=== PATIENT | male | born 1975 | race Caucasian/White ===

== ENCOUNTER → 2017-01-13 | Outpatient (CLI) | payer OTHER ==
[2017-01-13 08:51] LABS: ALT/SGPT 42 U/L (12-78); AST/SGOT 23 U/L (15-37); BLOOD UREA NITROGEN 11 mg/dl (7-18); BUN/CREATININE RATIO 9.2 (10-20); CALCIUM 8.8 mg/dl (8.5-10.1); CARBON DIOXIDE 27 mmol/L (21-32); CHLORIDE 105 mmol/L (98-107); CHOLESTEROL 161 mg/dl (0-200); GLUCOSE 88 mg/dl (70-99); POTASSIUM 3.6 mmol/L (3.5-5.1); SODIUM 143 mmol/L (136-145); TRIGLYCERIDES 141 mg/dl (0-150); VERY LOW DENSITY LIPOPROT CALC 28 mg/dl
[2017-01-13 08:56] LABS: ALKALINE PHOSPHATASE 108 U/L (45-117); CHOLESTEROL/HDL RATIO 4.5; HDL CHOLESTEROL 36 mg/dl; LDL CHOLESTEROL CALCULATED 97 mg/dl
== END | disposition home or self-care (01) ==
LOC: C.LAB 07:19
PROVIDERS: ATTEND Family Medicine
DX: I10 Essential (primary) hypertension (principal); E78.1 Pure hyperglyceridemia

== ENCOUNTER 2022-08-11 03:52 | Inpatient (IN) ==
[2022-08-11] MEDS ORDERED: KETOROLAC TROMETHAMINE 15 MG/ML VIAL IV ONE (04:19)
[2022-08-11] MEDS ORDERED: SODIUM CHLORIDE 0.9% 1000ML 1,000 ML IV SCH (04:20)
--- NOTE | 2022-08-11 04:30 | Emergency Department Note ---
Impression & Plan Perforated small intestine, Abdominal pain ED Provider Note CHIEF COMPLAINT: Abdominal pain HISTORY OF PRESENT ILLNESS: Elio Lawler is a 47 year old male with history of HTN, GERD, ARTEM, among others listed below who presents to the Emergency Department for evaluation of left lower abdominal pain radiating into his periumbilical region and left upper abdomen which has become progressively worse since yesterday morning. He describes a constant, squeezing pain which becomes worse with movement and with palpation of the area. Currently, he rates his discomfort as a 5/10 which has not been significantly improved after taking Tylenol and ibuprofen. The patient's last bowel movement was yesterday morning which is unlike him as he normally has at least one a day. He does state that it was normal at that time, no diarrhea, hematochezia or melena. About 1 hour ago, he states that he was sitting on the toilet when he suddenly became very sweaty and felt nauseous in addition to the pain. No vomiting or urinary symptoms. The patient does state that he recently tested +COVID-19 on 08/09 (2 days prior). He has had fevers/chills, post-nasal drip and a cough. He otherwise denies chest pain or respiratory difficulties. The patient denies having similar symptoms in the past. No history of abdominal surgeries. REVIEW OF SYSTEMS: 10 systems were reviewed and were negative unless otherwise stated in HPI as above PHYSICAL EXAM: VITALS: Vitals are noted on the nurse's note and reviewed by myself. Vital signs stable. General: Resting in bed, appears uncomfortable but no acute distress HEENT: Normocephalic, PERRL, EOMI, mucous membranes moist, oropharynx clear without erythema, edema or exudates Neck: Supple, no lymphadenopathy, non-tender, ROM intact without pain Resp: Good inspiratory effort on room air, lung sounds clear bilaterally CV: Regular rate and rhythm, normal S1-S2, peripheral pulses palpated Back: No CVA/flank tenderness to palpation Abd: Obese, soft, tender to palpation over the left upper and lower abdominal quadrants, epigastrium and periumbilical region. No rebound, guarding or rigidity MSK: Moving all extremities without apparent pain or difficulty Integumentary: Warm, dry, no appreciable rash Neuro: Awake, alert and oriented x 3, interacting and answering questions appropriately Differential diagnosis includes etiologies such as appendicitis, diverticulitis, obstruction, inflammatory bowel disease, renal colic, PUD, biliary pathology, pancreatitis, mesenteric ischemia, aortic pathology, infections, genitourinary, UTI, perforated viscus, as well as others were entertained. EMERGENCY DEPARTMENT COURSE: Physical exam and history were performed. Nursing triage notes, EMR, and medication list were personally reviewed. Patient appears to have left lower abdominal pain radiating into his periumbilical region and left upper abdomen which has become progressively worse since yesterday morning. Additional history as described above. See physical exam as noted above. EKG was obtained and showed normal sinus rhythm at 99 bpm. No ectopy or concern for acute ischemic change. When compared to study from 08/05/2016, no signi ficant change was found. The patient was offered medications. IV access was established and he was given NSS 1 L, Toradol 15 mg, morphine 5 mg x 2 and Zofran 4 mg throughout his emergency department course. Labs were obtained and reviewed by myself as below. Of note, leukocytosis with a WBC of 13.11. No concern for anemia with hemoglobin 14.3. Electrolytes WNL. Renal indices stable. LFTs nondiagnostic. Lipase WNL. CAT scan of the abdomen/pelvis was obtained and reviewed by radiologist and myself as below. Of note, there was moderate extraluminal gas with associated mesenteric infiltration within the jejunal mesentery which represent a contained perforation. Probable associated diverticulum, favors perforated jejunal diverticulitis. Upon reevaluation, the patient was feeling improved after receiving the medication but still noted pain. I discussed the results of the above findings with him at bedside as well as my plans to speak with general surgery. I did call and speak with Rigoberto GIMENEZ of general surgery and discussed the patient's case with him. He advised starting him on Zosyn, which was ordered, and they plan to evaluate the patient. Recommended speaking with medicine for admission. I then called and spoke with Dr. Duckworth of the [facility] physician group. He agreed to evaluate the patient for further management. Please see his dictation for additional plan and disposition. I did update the patient on my discussion with both general surgery and me rivas. He verbalized understanding and agreement with the treatment plan as above. The chart was completed utilizing [employer] Voice Recognition Software. Grammatical errors, random word insertions, pronoun errors, and incomplete sentences are an occasional consequence of this system due to software limitations, ambient noise, and hardware issues. Any formal questions or concerns about the content, text, or information contained within the body of this dictation should be directly addressed to the provider for clarification. Past Med/Surg History Medical History (Updated 08/11/22 @ 09:44 by Delmy Adair PA-C) GERD (gastroesophageal reflux disease) Hypertension ARTEM (obstructive sleep apnea) Surgical History H/O vasectomy No pertinent past surgical history Family History Mother Hypertension Brother Hypertension Aunt Breast cancer Grandfather (Paternal) Myocardial infarction Denies family history of Ovarian cancer Prostate cancer Diabetes Colorectal cancer Social History Smoking Status: Never smoker Second Hand Exposure: No; Hx Alcohol Use: Yes Alcohol Intake Frequency: Monthly or Less Hx Substance Use: No Preferred Language: Sudanese marital status: Current Living Situation: Family current occupational status: employed 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 How many Children do You have: 3 Feels Safe at Home: Yes caffeine: Yes Dental Care, Regularly: Yes Physical Activity Frequency: 1-2 Times per Week Seatbelt Use: sometimes Sunscreen Use: Yes (sometimes ) Allergies Allergies Allergy/AdvReac Type Severity Reaction Status Date / Time No Known Drug Allergies Allergy Verified 05/09/22 09:25 Bee sting AdvReac Unknown Uncoded 05/09/22 09:25 Home Meds Home Medications Medication Instructions Recorded Confirmed famotidine 10 mg tablet 10 mg PO HS 06/17/20 08/11/22 amlodipine 5 mg tablet 5 mg PO HS 08/11/22 08/11/22 hydrochlorothiazide 25 mg tablet 25 mg PO HS 08/11/22 08/11/22 losartan 100 mg tablet 100 mg PO HS 08/11/22 08/11/22 Previous Rx's Medication Instructions Recorded Auto Titrating CPAP See Rx Instructions .Route 12/22/21 .COMPLEX #1 ea Results & Data (ED) Vital Signs Vital Signs - 24 hr 08/11/22 03:52 08/11/22 06:08 08/11/22 08:49 Temperature 37.1 C Temperature Source Temporal Artery Scan Pulse Rate 105 H Pulse Rate [Finger] 91 H 97 H Respiratory Rate 16 18 18 Respiratory Effort / Characteristics Non-Labored Spontaneous Respiratory Depth Normal Blood Pressure 123/82 Blood Pressure [Right Arm] 154/92 H 117/72 Blood Pressure Mean 95 Blood Pressure Mean [Right Arm] 112 87 Pulse Oximetry 96 96 95 Oxygen Delivery Method Room Air Nasal Cannula Oxygen Flow Rate 2 Sepsis New/Unexplained Change in Mental Status No Sepsis Action Taken by Nursing No Action Required Laboratory Data Result diagrams: 08/11/22 04:09 08/11/22 04:09 Lab Results 08/11/22 08/11/22 08/11/22 Range/Units 04:09 04:09 08:05 WBC 13.11 H (4.8-10.8) K/ul RBC 4.64 (4.63-6.08) M/uL Hgb 14.3 (14.0-18.0) g/dl Hct 43.3 (40.1-51.0) % MCV 93.3 (80.0-100.0) fL MCH 30.8 (25.0-34.0) pg MCHC 33.0 (32.0-36.0) g/dL RDW Std Deviation 42.6 (36.4-46.3) fL RDW Coeff of Caitlin 12.5 (11.5-14.5) % Plt Count 155 (130-400) K/uL MPV 10.3 (9.4-12.4) fL Immature Gran % (Auto) 0.5 % Neut % (Auto) 83.6 % Lymph % (Auto) 7.9 % [place] % (Auto) 7.7 % Eos % (Auto) 0.1 % Baso % (Auto) 0.2 % Neut # (Auto) 10.96 H (1.4-6.5) K/uL Lymph # (Auto) 1.04 L (1.2-3.4) K/uL [place] # (Auto) 1.01 H (0.24-0.82) K/uL Eos # (Auto) 0.01 (0-0.50) K/uL Baso # (Auto) 0.02 (0-0.2) K/uL Immature Gran # (Auto) 0.07 H (0.00-0.02) K/uL Sodium 136 (136-145) mmol/L Potassium 4.0 (3.5-5.1) mmol/L Chloride 105 (98-107) mmol/L Carbon Dioxide 24 (21-32) mmol/L Anion Gap 7 (3-11) BUN 12 (6-23) mg/dl Creatinine 1.12 (0.6-1.4) mg/dl Est Cr Clr Drug Dosing 112.4 ml/min Est GFR ( Amer) 91.5 ml/min Est GFR (Non-Af Amer) 78.9 ml/min BUN/Creatinine Ratio 10.7 (10-20) Glucose 127 H (70-99(Fasting)) mg/dl Lactate (0.4-2.0) mmol/L Calcium 8.8 (8.5-10.1) mg/dl Total Bilirubin 1.5 H (0.2-1.0) mg/dl AST 17 (13-39) U/L ALT 27 (7-52) U/L Alkaline Phosphatase 64 (34-104) U/L Total Protein 6.8 (6.0-8.3) gm/dl Albumin 4.0 (3.4-5.0) gm/dl Globulin 2.8 (2.5-4.0) gm/dl Albumin/Globulin Ratio 1.4 (0.9-2) Lipase 19 (11-82) U/L SARS-CoV-2, RNA, NAAT POSITIVE A* (NEGATIVE) 08/11/22 Range/Units 08:22 WBC (4.8-10.8) K/ul RBC (4.63-6.08) M/uL Hgb (14.0-18.0) g/dl Hct (40.1-51.0) % MCV (80.0-100.0) fL MCH (25.0-34.0) pg MCHC (32.0-36.0) g/dL RDW Std Deviation (36.4-46.3) fL RDW Coeff of Caitlin (11.5-14.5) % Plt Count (130-400) K/uL MPV (9.4-12.4) fL Immature Gran % (Auto) % Neut % (Auto) % Lymph % (Auto) % [place] % (Auto) % Eos % (Auto) % Baso % (Auto) % Neut # (Auto) (1.4-6.5) K/uL Lymph # (Auto) (1.2-3.4) K/uL [place] # (Auto) (0.24-0.82) K/uL Eos # (Auto) (0-0.50) K/uL Baso # (Auto) (0-0.2) K/uL Immature Gran # (Auto) (0.00-0.02) K/uL Sodium (136-145) mmol/L Potassium (3.5-5.1) mmol/L Chloride (98-107) mmol/L Carbon Dioxide (21-32) mmol/L Anion Gap (3-11) BUN (6-23) mg/dl Creatinine (0.6-1.4) mg/dl Est Cr Clr Drug Dosing ml/min Est GFR ( Amer) ml/min Est GFR (Non-Af Amer) ml/min BUN/Creatinine Ratio (10-20) Glucose (70-99(Fasting)) mg/dl Lactate 0.8 (0.4-2.0) mmol/L Calcium (8.5-10.1) mg/dl Total Bilirubin (0.2-1.0) mg/dl AST (13-39) U/L ALT (7-52) U/L Alkaline Phosphatase (34-104) U/L Total Protein (6.0-8.3) gm/dl Albumin (3.4-5.0) gm/dl Globulin (2.5-4.0) gm/dl Albumin/Globulin Ratio (0.9-2) Lipase (11-82) U/L SARS-CoV-2, RNA, NAAT (NEGATIVE) Administered Medications Discontinued Medications Sodium Chloride (Nss 1000ml) 1,000 mls @ 999 mls/hr IV .Q1H1M LONNIE Stop: 08/11/22 05:20 Last Infusion: 08/11/22 06:43 Dose: 0 mls/hr Documented By: Admin: 08/11/22 04:24 Dose: 999 mls/hr Documented By: NATHANAEL Piperacillin Sod/Tazobactam Sod (Zosyn) 4.5 gm in 120 mls @ 240 mls/hr IV NOW ONE Stop: 09/16/22 08:09 Last Infusion: 08/11/22 08:31 Dose: 0 mls/hr Documented By: Admin: 08/11/22 08:01 Dose: 240 mls/hr Documented By: JOEY Pantoprazole Sodium 40 mg/ (Syringe) 10 mls @ 5 mls/min IV NOW STA Stop: 08/11/22 08:03 Last Admin: 08/11/22 08:43 Dose: 5 mls/min Documented By: JOEY Ioversol (Optiray 300 500ml) 125 ml IV ONCE ONE Stop: 08/11/22 05:13 Last Admin: 08/11/22 05:13 Dose: 116 ml Documented By: REG Ketorolac Tromethamine (Ketorolac Tromethamine 15 Mg/Ml Vial) 15 mg IV NOW ONE Stop: 08/11/22 04:20 Last Admin: 08/11/22 04:24 Dose: 15 mg Documented By: NATHANAEL Morphine Sulfate (Morphine Sulfate 10 Mg/Ml Carp/Vial) 5 mg IV NOW STA Stop: 08/11/22 05:17 Last Admin: 08/11/22 05:23 Dose: 5 mg Documented By: NATHANAEL Morphine Sulfate (Morphine Sulfate 10 Mg/Ml Carp/Vial) 5 mg IV NOW STA Stop: 08/11/22 08:00 Last Admin: 08/11/22 08:10 Dose: 5 mg Documented By: JOEY Ondansetron HCl (Ondansetron Inj 2 Mg/Ml 2 Ml Vial) 4 mg IV NOW STA Stop: 08/11/22 05:17 Last Admin: 08/11/22 05:23 Dose: 4 mg Documented By: NATHANAEL Imaging Data Radiologist's Impression: Abdomen/Pelvis CT 08/11/22 04:19 CT OF THE ABDOMEN AND PELVIS WITH CONTRAST CLINICAL HISTORY: Left-sided abdominal pain. COMPARISON STUDY: None. TECHNIQUE: Following IV administration of 116 mL of Optiray, axial images of the abdomen and pelvis were obtained from the lung bases to the proximal femurs. Images were reviewed in the axial, sagittal, and coronal planes. IV contrast was administered without complication. Automated exposure control was utilized for the study. A dose lowering technique was utilized adhering to the principles of ALARA. CT DOSE: 2183.62 mGy.cm FINDINGS: Lung bases are unremarkable. There is hepatic steatosis. Spleen, adrenal glands, left kidney and pancreas are normal. A 7 mm hypodense lesion within the upper pole of the right kidney is too small to characterize. There is no biliary or pancreatic ductal dilatation. There is moderate extraluminal gas within the mesentery of the jejunum. There is associated moderate mesenteric stranding] mild small bowel wall thickening. There is a possible associated jejunal diverticulum measuring 1.7 cm on axial image 237 of 506. There are few prominent small bowel loops. However, there is no transition point to suggest a bowel obstruction. The appendix is normal. There is a 2.3 cm polypoid abnormality within the sigmoid colon on axial image 393 of 506. This may reflect a colonic lesion. Major vasculature is patent. There is no lymphadenopathy. Prominent portacaval and el hepatis nodes are likely benign. IMPRESSION: 1. Moderate extraluminal gas with associated mesenteric infiltration within the jejunal mesentery. The findings represent a contained perforation. Probable associated diverticulum. Although not definitive, the findings favor perforated jejunal diverticulitis. Close clinical follow-up is recommended. Findings discussed with Delmy Adair at time of dictation. 2. 2.3 cm polypoid abnormality within the sigmoid colon. A colonic lesion cannot be excluded. Nonemergent GI consultation is recommended for consideration for colonoscopy. 3. Hepatic steatosis. ACT 112: Positive. There are findings on this exam that require communication between the performing entity and the patient following Patient Test Result Inf ormation Act ([place] Act 112) guidelines. Electronically signed by: Baljeet Brody M.D. 08/11/2022 7:25 AM Chest X-Ray 08/11/22 07:59 XR chest 1V portable CLINICAL HISTORY: hypoxia, COVID-19 TECHNIQUE: Single frontal radiograph of the chest was obtained. Comparison: None available at the time of this dictation. FINDINGS: No lines and tubes are seen. Cardiomegaly is noted. Prominence and cephalization of the vasculature is seen. No evidence of pleural effusion or pneumothorax. IMPRESSION: Cardiomegaly with mild pulmonary vascular congestion. ACT 112: Negative or not required by law. Electronically signed by: Davonte Joaquin M.D. 08/11/2022 8:44 AM Discharge Plan Visit Data Chief Complaint: Abdominal Pain Stated Complaint: ABDOMINAL PAIN, COVID POSITIVE ED Provider: Nery Matias ED Midlevel Provider: Delmy Adair Discharge Problem: Perforated small intestine, Abdominal pain Patient Disposition: Admitted As Inpatient Forms Stand Alone Forms: [facility] Prescriptions Prescriptions: No Action Auto Titrating CPAP Misc See Rx Instructions .ROUTE .COMPLEX Qty: 1 0RF Rx Instructions: Auto 5 to 18 cm of water, mask fit to patient comfort, heated humidification, compliance download capabilities, DME of patient choice; famotidine 10 mg tablet 10 mg PO HS amlodipine 5 mg tablet 5 mg PO HS hydrochlorothiazide 25 mg tablet 25 mg PO HS losartan 100 mg tablet 100 mg PO HS Referrals Referrals: Nura Basilio MD [Primary Care Provider] -
[2022-08-11 04:37] LABS: Basophils # (auto) 0.02 K/uL (0-0.2); Basophils % (auto) 0.2 %; Eosinophils # (auto) 0.01 K/uL (0-0.50); Eosinophils % (auto) 0.1 %; Hematocrit (blood only) 43.3 % (40.1-51.0); Hemoglobin 14.3 g/dl (14.0-18.0); Immature Granulocytes # (auto) 0.07 K/uL (0.00-0.02); Immature Granulocytes % (auto) 0.5 %; Lymphocytes # (auto) 1.04 K/uL (1.2-3.4); Lymphocytes % (auto) 7.9 %; Mean Corpuscular Hemoglobin 30.8 pg (25.0-34.0); Mean Corpuscular Volume 93.3 fL (80.0-100.0); Mean Platelet Volume 10.3 fL (9.4-12.4); Monocytes # (auto) 1.01 K/uL (0.24-0.82); Monocytes % (auto) 7.7 %; Neutrophils # (auto) 10.96 K/uL (1.4-6.5); Neutrophils % (auto) 83.6 %; Platelet Count 155 K/uL (130-400); RDW Coefficient of Variation 12.5 % (11.5-14.5); RDW Standard Deviation 42.6 fL (36.4-46.3); Red Blood Count 4.64 M/uL (4.63-6.08); White Blood Count 13.11 K/ul (4.8-10.8)
[2022-08-11 04:54] LABS: Albumin Globulin Ratio 1.4 (0.9-2); BUN Creatinine Ratio 10.7 (10-20); Bilirubin,Total 1.5 mg/dl (0.2-1.0); Calcium 8.8 mg/dl (8.5-10.1); Creatinine Clr Calc Pharmacy 112.4 ml/min; Est GFR (African American) 91.5 ml/min; Est GFR (Non-African American) 78.9 ml/min; Globulin 2.8 gm/dl (2.5-4.0); Total Protein 6.8 gm/dl (6.0-8.3)
[2022-08-11] MEDS ORDERED: OPTIRAY 300 500mL IV ONE (05:12)
[2022-08-11] MEDS ORDERED: MoRPHine SULFATE 10 MG/ML CARP/VIAL IV STA ×2 (05:16→07:59)
[2022-08-11] MEDS ORDERED: ONDANSETRON INJ 2 MG/ML 2 ML VIAL IV STA (05:16)
--- NOTE | 2022-08-11 07:27 | CT Scan Report ---
CT OF THE ABDOMEN AND PELVIS WITH CONTRAST CLINICAL HISTORY: Left-sided abdominal pain. COMPARISON STUDY: None. TECHNIQUE: Following IV administration of 116 mL of Optiray, axial images of the abdomen and pelvis w ere obtained from the lung bases to the proximal femurs. Images were reviewed in the axial, sagittal, and coronal planes. IV contrast was administered without complication. Automated exposure control w as utilized for the study. A dose lowering technique was utilized adhering to the principles of KARLA Ramirez. CT DOSE: 2183.62 mGy.cm FINDINGS: Lung bases are unremarkable. There is hepatic steatosis. Spleen, adrenal glands, left kidne y and pancreas are normal. A 7 mm hypodense lesion within the upper pole of the right kidney is too s mall to characterize. There is no biliary or pancreatic ductal dilatation. There is moderate extralum inal gas within the mesentery of the jejunum. There is associated moderate mesenteric stranding] mild small bowel wall thickening. There is a possible associated jejunal diverticulum measuring 1.7 cm on axial image 237 of 506. There are few prominent small bowel loops. However, there is no transition p oint to suggest a bowel obstruction. The appendix is normal. There is a 2.3 cm polypoid abnormality w ithin the sigmoid colon on axial image 393 of 506. This may reflect a colonic lesion. Major vasculatu re is patent. There is no lymphadenopathy. Prominent portacaval and el hepatis nodes are likely be nign. IMPRESSION: 1. Moderate extraluminal gas with associated mesenteric infiltration within the jejunal mesentery. Th e findings represent a contained perforation. Probable associated diverticulum. Although not definiti ve, the findings favor perforated jejunal diverticulitis. Close clinical follow-up is recommended. Fi ndings discussed with Delmy Adair at time of dictation. 2. 2.3 cm polypoid abnormality within the sigmoid colon. A colonic lesion cannot be excluded. [facility] is recommended for consideration for colonoscopy. 3. Hepatic steatosis. ACT 112: Positive. There are findings on this exam that require communication between the performing entity and the patient following Patient Test Result Information Act ([place] Act 112) guidelines. Electronically signed by: Baljeet Brody M.D. 08/11/2022 7:25 AM
[2022-08-11] MEDS ORDERED: PIPERACILLIN/TAZOBACTAM 4.5 GM/120 ML BAG IV ONE (07:40)
[2022-08-11] MEDS ORDERED: PANTOprazole 40 MG in SYRINGE 0 ML IV STA (08:02)
--- NOTE | 2022-08-11 08:11 | History & Physical Report ---
Date of Service August 11, 2022 Assessment & Plan (1) Perforated small intestine: Plan: NPO IV Zosyn IV fluids Lactate 0.8 Consult surgery (2) Diverticulitis of small bowel: Plan: As above (3) COVID-19: Plan: Mild nasal congestion as only symptom No specific treatment required on admission Hypoxia due to his ARTEM and morphine use CXR ordered (4) GERD (gastroesophageal reflux disease): Plan: Switch famotidine for pantoprazole 40mg IV daily given small bowel perforation as above (5) ARTEM (obstructive sleep apnea): Plan: May use own CPAP (6) Hypertension: Plan: Holding all oral antihypertensives on admission. Plan VTE Prophylaxis - low risk, SCDs Diet - NPO Disposition - admit to PCU Admission and Anticipated Discharge Date Admission Date: August 11, 2022 History of Present Illness Chief Complaint: Abdominal pain Primary Care Provider: Elio Basilio MD Elio Lawler is a 47-year-old male who presents to the ER with abdominal pain. He reports this started yesterday morning initially in his lower abdomen and yesterday progressed to his umbilicus and then to the left side. Yesterday around 5pm he started with fever and chills. He was recently diagnosed with COVID-19 2 days ago with associated nasal congestion, dry cough. He denies any chest pain, diarrhea, loss of taste or smell. No BM since yesterday morning but he also hasn't been eating much. Last main meal was on Sunday due to lack of appetite. He has been taking ibuprofen and Tyelenol for pain with limited effectiveness. He has chronic GERD for which he takes famotidine 20mg PO HS. In the ER CT A/P showed jejunal diverticulitis with contained perforation. ER provider discussed with surgery and asked for patient to be admitted under medicine for ongoing care with surgery on consult. Allergies Allergy/AdvReac Type Severity Reaction Status Date / Time No Known Drug Allergies Allergy Verified 05/09/22 09:25 Bee sting AdvReac Unknown Uncoded 05/09/22 09:25 Home Medications Medication Instructions Recorded Confirmed Type famotidine 10 mg tablet 10 mg PO HS 06/17/20 08/11/22 History Auto Titrating CPAP See Rx Instructions .Route 12/22/21 08/11/22 Rx .COMPLEX #1 ea amlodipine 5 mg tablet 5 mg PO HS 08/11/22 08/11/22 History hydrochlorothiazide 25 mg tablet 25 mg PO HS 08/11/22 08/11/22 History losartan 100 mg tablet 100 mg PO HS 08/11/22 08/11/22 History Past Med/Surg History Medical History (Updated 08/11/22 @ 22:46 by Suhail Duckworth MD) GERD (gastroesophageal reflux disease) Hypertension ARTEM (obstructive sleep apnea) Surgical History H/O vasectomy No pertinent past surgical history Family History Mother Hypertension Brother Hypertension Aunt Breast cancer Grandfather (Paternal) Myocardial infarction Denies family history of Ovarian cancer Prostate cancer Diabetes Colorectal cancer Social History Smoking Status: Never smoker Second Hand Exposure: No; Hx Alcohol Use: Yes Alcohol type: beer Alcohol Intake Frequency: Monthly or Less Hx Substance Use: No Preferred Language: Austrian Communication Ability: Effective Date Pitter Required: No Beliefs That Will Affect Care: None marital status: Current Living Situation: Spouse current occupational status: employed 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 How many Children do You have: 3 Feels Safe at Home: Yes caffeine: Yes Dental Care, Regularly: Yes Physical Activity Frequency: 1-2 Times per Week Seatbelt Use: sometimes Sunscreen Use: Yes (sometimes ) Assistive Devices: CPAP Review of Systems Review of Systems: All systems reviewed & are unremarkable except as noted in HPI & below Physical Exam Constitutional: WD/WN, vitals as above Eyes: + anicteric sclerae; normal pupil size Neck: trachea midline, no thyromegaly Respiratory: normal respiratory effort, lungs clear to auscultation Gastrointestinal (Abdomen): Inspection/Auscultation: abdomen normal to inspection and normal bowel sounds; abdomen not distended Percussion/Palpation: + abdomen tender (epigastric, umbilical, left sided) and abdomen soft; no guarding Musculoskeletal: no cyanosis or clubbing, extremities motor strength 5/5 Skin: no rashes, warm and dry Neurologic: moves all extremities and awake; not confused Psychiatric: A+Ox3, euthymic affect Genitourinary: no CVA tenderness Results & Data Results & Data ([facility]) Vital Signs (Past 12 Hours) Vital Signs Temp Pulse Pulse Resp BP BP Pulse Ox 08/11/22 06:08 91 H 18 154/92 H 96 08/11/22 03:52 37.1 C 105 H 16 123/82 96 O2 Del Method O2 Flow Rate 08/11/22 06:08 Nasal Cannula 2 08/11/22 03:52 Room Air Laboratory Results Abnormal lab results 08/11/22 08/11/22 Range/Units 04:09 04:09 WBC 13.11 H (4.8-10.8) K/ul Neut # (Auto) 10.96 H (1.4-6.5) K/uL Lymph # (Auto) 1.04 L (1.2-3.4) K/uL Swift # (Auto) 1.01 H (0.24-0.82) K/uL Immature Gran # (Auto) 0.07 H (0.00-0.02) K/uL Glucose 127 H (70-99(Fasting)) mg/dl Total Bilirubin 1.5 H (0.2-1.0) mg/dl Diagnostic Findings CT OF THE ABDOMEN AND PELVIS WITH CONTRAST CLINICAL HISTORY: Left-sided abdominal pain. COMPARISON STUDY: None. TECHNIQUE: Following IV administration of 116 mL of Optiray, axial images of the abdomen and pelvis were obtained from the lung bases to the proximal femurs. Images were reviewed in the axial, sagittal, and coronal planes. IV contrast was administered without complication. Automated exposure control was utilized for the study. A dose lowering technique was utilized adhering to the principles of ALARA. CT DOSE: 2183.62 mGy.cm FINDINGS: Lung bases are unremarkable. There is hepatic steatosis. Spleen, adrenal glands, left kidney and pancreas are normal. A 7 mm hypodense lesion within the upper pole of the right kidney is too small to characterize. There is no biliary or pancreatic ductal dilatation. There is moderate extraluminal gas within the mesentery of the jejunum. There is associated moderate mesenteric stranding] mild small bowel wall thickening. There is a possible associated jejunal diverticulum measuring 1.7 cm on axial image 237 of 506. There are few prominent small bowel loops. However, there is no transition point to suggest a bowel obstruction. The appendix is normal. There is a 2.3 cm polypoid abnormality within the sigmoid colon on axial image 393 of 506. This may reflect a colonic lesion. Major vasculature is patent. There is no lymphadenopathy. Prominent portacaval and el hepatis nodes are likely benign. IMPRESSION: 1. Moderate extraluminal gas with associated mesenteric infiltration within the jejunal mesentery. The findings represent a contained perforation. Probable associated diverticulum. Although not definitive, the findings favor perforated jejunal diverticulitis. Close clinical follow-up is recommended. Findings discussed with Delmy Adair at time of dictation. 2. 2.3 cm polypoid abnormality within the sigmoid colon. A colonic lesion cannot be excluded. Nonemergent GI consultation is recommended for consideration for colonoscopy. 3. Hepatic steatosis. Medications Administered ER medications given: Toradol 15 mg IV NSS 1 L bolus Morphine 5 mg IV x2 Ondansetron 4 mg IV Zosyn 4.5 g IV Code Status & VTE Plan Code Status Full VTE Prophylaxis Plan VTE Prophylaxis will be ordered: Yes PG Care Time/CCT Total # of Minutes Spent Total Time Spent with Patient: Total time spent is greater than 50% in coordination of care (as documented) at patient's floor/unit and/or counseling patient: Coding Level of Care Code 57066 Initial Inpt Care Lvl 2 Diagnoses Perforated small intestine K63.1 Diverticulitis of small bowel K57.12 COVID-19 U07.1 GERD (gastroesophageal reflux disease) K21.9 ARTEM (obstructive sleep apnea) G47.33 Hypertension I10
--- NOTE | 2022-08-11 08:36 | Surgery Consultation ---
Date of Consultation August 11, 2022 Assessment & Plan (1) Diverticulitis of small bowel: Contained perforation into mesentery. No acute exam findings. WBC 13. Keep on Zosyn, NPO for 24-48 hours. Will follow. Supervising Physician Co-Signing Physician Notes As per Robert DUNNE Conservative management at this time with broad-spectrum antibiotics and p.o. and follow clinically hopefully can avoid any surgical intervention History of Present Illness History of Present Illness 47 y/o male tested + for COVID 2 days ago. Yesterday began having lower abdo zoila pain that by evening became more central and severe. Had some fevers and chills and came to ED overnight. No previous abdominal pain or problems. No N/V. Normal BM yesterday morning. Only COVID symptom is mild cough. Allergies Allergy/AdvReac Type Severity Reaction Status Date / Time No Known Drug Allergies Allergy Verified 05/09/22 09:25 Bee sting AdvReac Unknown Uncoded 05/09/22 09:25 Home Medications Medication Instructions Recorded Confirmed Type famotidine 10 mg tablet 10 mg PO HS 06/17/20 08/11/22 History Auto Titrating CPAP See Rx Instructions .Route 12/22/21 08/11/22 Rx .COMPLEX #1 ea amlodipine 5 mg tablet 5 mg PO HS 08/11/22 08/11/22 History hydrochlorothiazide 25 mg tablet 25 mg PO HS 08/11/22 08/11/22 History losartan 100 mg tablet 100 mg PO HS 08/11/22 08/11/22 History Patient History Medical History (Updated 08/11/22 @ 09:44 by Delmy Adair PA-C) GERD (gastroesophageal reflux disease) Hypertension ARTEM (obstructive sleep apnea) Surgical History H/O vasectomy No pertinent past surgical history Family History Mother Hypertension Brother Hypertension Aunt Breast cancer Grandfather (Paternal) Myocardial infarction Denies family history of Ovarian cancer Prostate cancer Diabetes Colorectal cancer Social History Smoking Status: Never smoker Second Hand Exposure: No; Hx Alcohol Use: Yes Alcohol Intake Frequency: Monthly or Less Hx Substance Use: No Preferred Language: Nigerian marital status: Current Living Situation: Family current occupational status: employed 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 How many Children do You have: 3 Feels Safe at Home: Yes caffeine: Yes Dental Care, Regularly: Yes Physical Activity Frequency: 1-2 Times per Week Seatbelt Use: sometimes Sunscreen Use: Yes (sometimes ) Review of Systems Constitutional: + fever and + chills Respiratory: + cough; no dyspnea Gastrointestinal: + abdominal pain and + belching; no nausea, no vomiting and no diarrhea/loose stools Physical Exam Constitutional: WD/WN, vitals as above Respiratory: normal respiratory effort, lungs clear to auscultation Cardiovascular: Rate/Rhythm: + tachycardic Gastrointestinal (Abdomen): Inspection/Auscultation: abdomen normal to inspection; abdomen not distended Percussion/Palpation: + abdomen tender (mild epigastric) and abdomen soft; no guarding Results & Data ([facility]) Vital Signs (Past 12 Hours) Vital Signs Temp Pulse Pulse Resp BP BP Pulse Ox 08/11/22 06:08 91 H 18 154/92 H 96 08/11/22 03:52 37.1 C 105 H 16 123/82 96 O2 Del Method O2 Flow Rate 08/11/22 06:08 Nasal Cannula 2 08/11/22 03:52 Room Air PG Care Time/CCT Total # of Minutes Spent Total Time Spent with Patient: Total time spent is greater than 50% in coordination of care (as documented) at patient's floor/unit and/or counseling patient: Coding Level of Care Code 58585 Office/OBS Consult Lvl 3 Diagnoses Diverticulitis of small bowel K57.12
--- NOTE | 2022-08-11 08:45 | XRay Report ---
XR chest 1V portable CLINICAL HISTORY: hypoxia, COVID-19 TECHNIQUE: Single frontal radiograph of the chest was obtained. Comparison: None available at the time of this dictation. FINDINGS: No lines and tubes are seen. Cardiomegaly is noted. Prominence and cephalization of the vasculature i s seen. No evidence of pleural effusion or pneumothorax. IMPRESSION: Cardiomegaly with mild pulmonary vascular congestion. ACT 112: Negative or not required by law. Electronically signed by: Davonte Joaquin M.D. 08/11/2022 8:44 AM
[2022-08-11] MEDS ORDERED: ONDANSETRON INJ 2 MG/ML 2 ML VIAL ONE (10:55)
[2022-08-11] MEDS ORDERED: PIPERACILLIN/TAZOBACTAM 3.375 GM in DEXTROSE 5% 100 ML IV SCH (11:09)
[2022-08-11] MEDS ORDERED: ONDANSETRON INJ 2 MG/ML 2 ML VIAL IV PRN (11:09)
[2022-08-11] MEDS ORDERED: ACETAMINOPHEN 1,000 MG/100 ML VIAL IV PRN (11:12)
[2022-08-11] MEDS ORDERED: HYDROmorphone INJ 0.5 MG/0.5 ML SYR IV PRN ×2 (11:12)
[2022-08-11] MEDS: D5W AND LACTATED RINGERS 1,000 ML IV SCH (11:59)
[2022-08-11] MEDS: PIPERACILLIN/TAZOBACTAM 4.5 GM in DEXTROSE 5% 100 ML IV SCH ×2 (14:58→21:27)
--- NOTE | 2022-08-11 15:55 | Electrocardiogram Report ---
Test Reason : Blood Pressure : / mmHG Vent. Rate : 099 BPM Atrial Rate : 099 BPM P-R Int : 132 ms QRS Dur : 090 ms QT Int : 336 ms P-R-T Axes : 037 051 041 degrees QTc Int : 431 ms Normal sinus rhythm Normal ECG When compared with ECG of 05-AUG-2016 11:11, No significant change was found Confirmed by Carlos Calloway ([id number]) on 08/11/2022 3:55:22 PM Referred By: REFERRED SELF Confirmed By:Carlos Calloway
[2022-08-11] MEDS ORDERED: MoRPHine SULFATE 2 MG/ML CARP IV PRN (20:45)
[2022-08-11] MEDS ORDERED: MoRPHine SULFATE 4 MG/ML 1 ML CARP\\VIAL ONE (20:59)
[2022-08-11] MEDS ORDERED: MoRPHine SULFATE 4 MG/ML 1 ML CARP\\VIAL IV PRN (20:59)
[2022-08-12] MEDS: D5W AND LACTATED RINGERS 1,000 ML IV SCH ×4 (00:13→21:04)
[2022-08-12] MEDS: ACETAMINOPHEN 1,000 MG/100 ML VIAL IV SCH ×3 (00:13→18:05)
[2022-08-12] MEDS: PIPERACILLIN/TAZOBACTAM 4.5 GM in DEXTROSE 5% 100 ML IV SCH ×3 (05:44→21:04)
[2022-08-12 06:41] LABS: Basophils # (auto) 0.01 K/uL (0-0.2); Basophils % (auto) 0.1 %; Hematocrit (blood only) 37.8 % (40.1-51.0); Hemoglobin 12.3 g/dl (14.0-18.0); Immature Granulocytes # (auto) 0.05 K/uL (0.00-0.02); Immature Granulocytes % (auto) 0.5 %; Lymphocytes # (auto) 1.14 K/uL (1.2-3.4); Lymphocytes % (auto) 11.4 %; Mean Corpuscular Hemoglobin 30.7 pg (25.0-34.0); Mean Corpuscular Hgb Conc 32.5 g/dL (32.0-36.0); Mean Corpuscular Volume 94.3 fL (80.0-100.0); Mean Platelet Volume 10.6 fL (9.4-12.4); Monocytes # (auto) 0.55 K/uL (0.24-0.82); Monocytes % (auto) 5.5 %; Neutrophils # (auto) 8.28 K/uL (1.4-6.5); Neutrophils % (auto) 82.5 %; Platelet Count 143 K/uL (130-400); RDW Coefficient of Variation 12.7 % (11.5-14.5); RDW Standard Deviation 44.5 fL (36.4-46.3); Red Blood Count 4.01 M/uL (4.63-6.08); White Blood Count 10.03 K/ul (4.8-10.8)
--- NOTE | 2022-08-12 06:57 | Surgery Progress Note ---
Date of Service August 12, 2022 Assessment & Plan (1) Perforated small intestine: Plan: Continue n.p.o. status at this point except the ice chips and water sips Interesting that the patient was asymptomatic but started having chills and fever on Sunday found to have by CT scan yesterday to have what appears to be a perforated jejunal loculated suspicious for perforated jejunal diverticulum The story though is that on Sunday he ate a sausage that was cooked over the grill uses wire brushes to clean the grill and the possibility is that he may have ingested 1 of these metal fibers Regarding of the etiology at this time we will wait till his GI function returns before restarting a diet Admission and Anticipated Discharge Date Admission Date: August 11, 2022 Subjective Feels better denies any chills no nausea still has some pain on the left and above the umbilicus Physical Exam Physical Exam: The abdomen is prominent due to his body habitus There is minimal guarding to the left of the midline above the umbilical area Results & Data ([facility]) Vital Signs (Past 12 Hours) Vital Signs Temp Pulse Pulse Resp BP BP Pulse Ox 08/12/22 02:49 37.5 C 76 20 133/68 96 08/11/22 23:53 37.5 C 84 16 113/70 90 08/11/22 23:34 78 08/11/22 18:59 36.5 C 84 20 110/65 98 O2 Del Method 08/12/22 02:49 CPAP 08/11/22 23:53 CPAP 08/11/22 23:34 08/11/22 18:59 Room Air PG Care Time/CCT Total # of Minutes Spent Total Time Spent with Patient: Total time spent is greater than 50% in coordination of care (as documented) at patient's floor/unit and/or counseling patient: Coding Level of Care Code 36636 Subseq Hosp Care Lvl 3 Diagnoses Perforated small intestine K63.1
[2022-08-12 07:04] LABS: BUN Creatinine Ratio 9.7 (10-20); Calcium 8.4 mg/dl (8.5-10.1); Creatinine Clr Calc Pharmacy 111.4 ml/min; Est GFR (African American) 90.5 ml/min; Est GFR (Non-African American) 78.1 ml/min; Potassium 4.1 mmol/L (3.5-5.1)
[2022-08-12 07:12] LABS: Albumin Globulin Ratio 1.2 (0.9-2); Albumin Level 3.3 gm/dl (3.4-5.0); Bilirubin,Total 1.7 mg/dl (0.2-1.0); Globulin 2.7 gm/dl (2.5-4.0)
[2022-08-12] MEDS: PANTOprazole 40 MG in SYRINGE 0 ML IV SCH (13:43)
--- NOTE | 2022-08-12 19:04 | Hospitalist Progress Note ---
Date of Service August 12, 2022 Assessment & Plan (1) Perforated small intestine: Plan: NPO - except ice chips and sips, likely can advance to clears tomorrow IV Zosyn IV fluids Lactate 0.8 on admission Consult surgery (2) Diverticulitis of small bowel: Plan: As above (3) COVID-19: Plan: Mild nasal congestion as only symptom No specific treatment required on admission No longer hypoxic CXR - no acute pathology (4) GERD (gastroesophageal reflux disease): Plan: Continue pantoprazole 40mg IV daily (5) ARTEM (obstructive sleep apnea): Plan: May use own CPAP (6) Hypertension: Plan: Holding all oral antihypertensives on admission. BP stable. Plan VTE Prophylaxis - low risk, SCDs Diet - NPO except ice chips and sips Disposition - admit to PCU Admission and Anticipated Discharge Date Admission Date: August 11, 2022 Subjective No abdominal pain except on palpation. Fever yesterday but he reports not feeling it. No cough, shortness of breath or cough. Review of Systems Review of Systems: All systems reviewed & are unremarkable except as noted in Subjective Physical Exam Constitutional: WD/WN, vitals as above Respiratory: normal respiratory effort, lungs clear to auscultation Cardiovascular: RRR, no murmur, no edema Gastrointestinal (Abdomen): Inspection/Auscultation: abdomen normal to inspection and normal bowel sounds; abdomen not distended Percussion/Palpation: + abdomen tender (left sided) and abdomen soft; no guarding and abdomen not rigid Musculoskeletal: no cyanosis or clubbing, extremities motor strength 5/5 Skin: no rashes, warm and dry Neurologic: moves all extremities and awake; not confused Psychiatric: A+Ox3, euthymic affect Results & Data Results & Data ([facility]) Vital Signs (Past 12 Hours) Vital Signs Temp Pulse Pulse Resp BP Pulse Ox Pulse Ox 08/12/22 16:56 36.9 C 75 19 130/82 96 08/12/22 12:42 37.1 C 64 18 101/62 98 08/12/22 11:09 99 08/12/22 09:56 80 O2 Del Method 08/12/22 16:56 Room Air 08/12/22 12:42 Room Air 08/12/22 11:09 08/12/22 09:56 PG Care Time/CCT Total # of Minutes Spent Total Time Spent with Patient: Total time spent is greater than 50% in coordination of care (as documented) at patient's floor/unit and/or counseling patient: Coding Level of Care Code 94047 Subseq Hosp Care Lvl 2 Diagnoses Perforated small intestine K63.1 Diverticulitis of small bowel K57.12 COVID-19 U07.1 GERD (gastroesophageal reflux disease) K21.9 ARTEM (obstructive sleep apnea) G47.33 Hypertension I10
[2022-08-13] MEDS: ACETAMINOPHEN 1,000 MG/100 ML VIAL IV SCH ×2 (01:37→08:10)
[2022-08-13] MEDS: PIPERACILLIN/TAZOBACTAM 4.5 GM in DEXTROSE 5% 100 ML IV SCH ×2 (05:38→14:48)
--- NOTE | 2022-08-13 07:18 | Surgery Progress Note ---
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 antibiotics for another 5 days Cipro or Augmentin may be appropriate Regarding his diet if he tolerates liquids I would keep him on a low fiber diet until his stool function normalizes Admission and Anticipated Discharge Date Admission Date: August 11, 2022 Subjective Nurses reported that he would like to go home he is feeling better minimal discomfort Results & Data ([facility]) Vital Signs (Past 12 Hours) Vital Signs Temp Pulse Pulse Resp BP Pulse Ox O2 Del Method 08/13/22 03:00 36.9 C 82 18 117/71 93 BiPAP 08/12/22 23:17 37.1 C 65 18 135/78 94 BiPAP 08/12/22 22:22 78 08/12/22 19:29 36.9 C 81 18 158/102 H 92 Room Air PG Care Time/CCT Total # of Minutes Spent Total Time Spent with Patient: Total time spent is greater than 50% in coordination of care (as documented) at patient's floor/unit and/or counseling patient: Coding Level of Care Code 04608 Subseq Hosp Care Lvl 3 Diagnoses Perforated small intestine K63.1
[2022-08-13] MEDS: PANTOprazole 40 MG in SYRINGE 0 ML IV SCH (08:10)
[2022-08-13] MEDS: D5W AND LACTATED RINGERS 1,000 ML IV SCH ×2 (08:10→14:48)
--- NOTE | 2022-08-13 15:01 | Discharge Summary ---
Date of Service August 13, 2022 Admission HPI Per Admitting Provider Elio Lawler is a 47-year-old male who presents to the ER with abdominal pain. He reports this started yesterday morning initially in his lower abdomen and yesterday progressed to his umbilicus and then to the left side. Yesterday around 5pm he started with fever and chills. He was recently diagnosed with COVID-19 2 days ago with associated nasal congestion, dry cough. He denies any chest pain, diarrhea, loss of taste or smell. No BM since yesterday morning but he also hasn't been eating much. Last main meal was on Sunday due to lack of appetite. He has been taking ibuprofen and Tyelenol for pain with limited effectiveness. He has chronic GERD for which he takes famotidine 20mg PO HS. In the ER CT A/P showed jejunal diverticulitis with contained perforation. ER provider discussed with surgery and asked for patient to be admitted under medicine for ongoing care with surgery on consult. Principal Diagnosis Perforation jejunal diverticulum Incidental sigmoid polypod lesion Discharge Exam Constitutional WD/WN, vitals as above Eyes + anicteric sclerae; normal pupil size Respiratory normal respiratory effort, lungs clear to auscultation Cardiovascular RRR, no murmur, no edema Gastrointestinal (Abdomen) Inspection/Auscultation: abdomen normal to inspection and normal bowel sounds; abdomen not distended Percussion/Palpation: abdomen soft; abdomen nontender, no guarding and abdomen not rigid Neurologic moves all extremities and awake; not confused Psychiatric A+Ox3, euthymic affect Genitourinary no CVA tenderness Discharge Data Allergies Allergy/AdvReac Type Severity Reaction Status Date / Time No Known Drug Allergies Allergy Verified 05/09/22 09:25 Bee sting AdvReac Unknown Uncoded 05/09/22 09:25 Consultations 08/11/22 07:59 ED Decision to Admit Stat 08/11/22 08:06 Consult General Surgery Stat Ordered Studies 08/11/22 04:19 CT abd pelvis IV con only Urgent IMPRESSION: 1. Moderate extraluminal gas with associated mesenteric infiltration within the jejunal mesentery. The findings represent a contained perforation. Probable associated diverticulum. Although not definitive, the findings favor perforated jejunal diverticulitis. Close clinical follow-up is recommended. Findings discussed with Delmy Adair at time of dictation. 2. 2.3 cm polypoid abnormality within the sigmoid colon. A colonic lesion cannot be excluded. Nonemergent GI consultation is recommended for consideration for colonoscopy. 3. Hepatic steatosis. Hospital Course (1) Perforated small intestine: Elio Lawler is a 47 year old male admitted to [facility] from August [id number] due to abdominal pain. He was diagnosed with a perforated jejunal diverticulum on CT imaging. This was treated with bowel rest, intravenous fluids and Zosyn. He should continue Augmentin for a further 8 days on discharge. H eis currently tolerating a clear liquid diet on discharge without abdominal pain. Recommended advancing his diet slowly every 48 hours with clears then full then soft diet as long as he is tolerating each step. He should follow up with gastroenterology regarding the incidental 2.3cm polypoid lesion in his sigmoid colon and the jejunal diverticulitis. His blood pressure medication was discontinued on admission and he has not required reintroduction of these with BP 126/87 on discharge. He was advised to take his blood pressure at home and is consistently above 140 consider restarting his losartan. He was advise to follow up with his primary care provider to discuss if you need to restart these medications. He was also recently diagnosed with COVID-19 although no treatment for this is required at this time. (2) Diverticulitis of small bowel: (3) COVID-19: (4) GERD (gastroesophageal reflux disease): (5) ARTEM (obstructive sleep apnea): (6) Hypertension: Total Time Total Time Spent Total Time Spent (In Minutes): 35 Discharge Plan Discharge Items Patient Disposition: Home - Self-Care Reason For Visit: perforated jejunal diverticulum Discharge Diagnosis: Perforation jejunal diverticulum Activity: Per Instructions section Non-emergency contact: Primary Care Provider Call non-emergency contact if: you have any medication questions and your symptoms worsen Follow-up/Referrals: Nura Basilio MD [Primary Care Provider] - Raj Medina MD [Physician] - (4 week follow up polypoid lesion and jejunal diverticulitis) Diet: Other - See Diet Comment Addtl Attending Provider Instructions: You were admitted to [facility] from August 112021 due to abdominal pain. You were diagnosed with a perforated jejunal diverticulum. This was treated with bowel rest and intravenous antibiotics. Please continue Augmentin for a further 8 days on discharge. You are currently tolerating a clear liquid diet, please continue on this for 48 hours. Every 2 days recommend advancing diet if tolerated to full liquid then soft foods. Please return to the ER if having further fevers, chills or worsening abdominal pain. Please follow up with gastroenterology regarding the incidental 2.3cm polypoid lesion in your sigmoid colon and jejunal diverticulitis. You are currently not requiring any of your blood pressure medication. Please continue to hold your medication unless your blood pressure is consistently over 140. Recommend restarting losartan first if your blood pressure if high. Please follow up with your primary care provider to discuss if you need to restart the se medications. Pending Studies at Discharge: No Stand-Alone Forms: My [facility] Take5, Smoking Cessation Medications and DC Order Prescriptions: New amoxicillin-pot clavulanate 875-125 mg tablet 1 tab PO BID 8 Days Qty: 16 0RF Continued Auto Titrating CPAP Misc See Rx Instructions .ROUTE .COMPLEX Qty: 1 0RF Rx Instructions: Auto 5 to 18 cm of water, mask fit to patient comfort, heated humidification, compliance download capabilities, DME of patient choice; famotidine 10 mg tablet 10 mg PO HS amlodipine 5 mg tablet 5 mg PO HS hydrochlorothiazide 25 mg tablet 25 mg PO HS losartan 100 mg tablet 100 mg PO HS Discharge Orders: Discharge Order (Routine); Ordered 08/13/22 Ordered By: Suhail Walsh/Other Patient Handouts: Soft [place] Diet Dc, Clear Liquid Diet Dc, Full Liquid Diet Dc Admission Data Admit Date/Time: 08/11/22 08:06 Attending Provider: Suhail Duckworth Admit Provider: Suhail Duckworth Primary Care Provider: Nura Basilio Other Providers: Suhail Duckworth ; Billy Terry Other Interventions: Discharge Summary Assessment (RN) Last Done: 08/13/22 15:30 Coding Level of Care Code D/C DAY MANAGEMENT >30 MINS Diagnoses Perforated small intestine K63.1 Diverticulitis of small bowel K57.12 COVID-19 U07.1 GERD (gastroesophageal reflux disease) K21.9 ARTEM (obstructive sleep apnea) G47.33 Hypertension I10
[2022-08-13] MEDS ORDERED: AMOXICILLIN/CLAVULANATE 875 MG TAB PO ONE (15:30)
== END 2022-08-13 16:07 | disposition home or self-care (01) | DRG 391 ==
LOC: ED 03:52 → 2E 08:06